=== PATIENT | female | born 1975 | race Caucasian/White ===

== ENCOUNTER → 2020-08-25 10:56 | Outpatient (CLI) | payer OTHER, SELFPAY ==
--- NOTE | ~2020-08-25 | MM_ITS ---
EXAMINATION: MM screening [facility] BI w riddhi HISTORY: Screening mammogram TECHNIQUE: Craniocaudal and mediolateral oblique 3-D tomosynthesis images were obtained and synthetic 2-D images were generated. CAD analysis was submitted and interpreted. COMPARISON: 04/21/2014, 04/20/2013 BREAST PARENCHYMAL COMPOSITION: The breasts are extremely dense, which lowers the sensitivity of mamm ography. FINDINGS: There is no evidence of suspicious mass, calcification, or architectural distortion to sugg est malignancy in either breast. There has been no suspicious interval change. IMPRESSION: 1. No mammographic evidence of malignancy. 2. Recommend routine screening mammography in one year. BI-RADS Category 1: Negative Reviewed, dictated and finalized at location A.
--- NOTE | ~2020-08-25 | DEXA_ITS ---
Bone Density Report Name: Cheyanne Williamson Age: 45 Sex: Female Ethnicity: White Date of : 1975 Indication: prior fracture; Referring Provider: LARRY ACUÑA Study: Bone densitometry was performed. Exam Date: August 25, 2020 Accession number: [id number] Bone Density: Region BMD T-score Z-score Classification AP Spine (L1-L4) 0.791 -2.3 -1.9 Osteopenia Femoral Neck (Left) 0.573 -2.5 -2.1 Osteoporosis Total Hip (Left) 0.670 -2.2 -2.0 Osteopenia Femoral Neck (Right) 0.581 -2.4 -2.0 Osteopenia Total Hip (Right) 0.652 -2.4 -2.1 Osteopenia Total Hip Mean 0.661 -2.3 -2.1 Osteopenia World Health Organization criteria for BMD impression classify patients as: Normal (T-score at or above -1.0), Osteopenia (T-score between -1.0 and -2.5), or Osteoporosis (T-score at or below -2.5). 10-year Fracture Risk: FRAX not reported because: Premenopausal woman Some T-score for Spine Total or Hip Total or Femoral Neck at or below -2.5 Prior hip or vertebral fracture< Clinical Information Provided by Patient: Have had a previous hip or vertebral fracture Has had a low trauma fracture Is being treated for osteoporosis Has used the following medications: HRT (i.e. estrogen/hormone therapy), Vitamin D Patient maximum height was 60.25 No regular weight bearing exercise Drinks caffeinated beverages Onset of menses at age 16 Premenopausal Number of children 0 Impression: The patient's bone mass is below expected range for age, gender and ethnicity based on the Left Femoral Neck Z-score. The patient has risk factors, including: previous fracture. Discussion: It is important to ask patients whether they are taking their medications and to encourage continued and appropriate compliance with their osteoporosis therapies to reduce fracture risk. It is also important to review their risk factors and encourage appropriate calcium and vitamin D intakes, exercise, fall prevention and other lifestyle measures. Follow-Up: Consider a repeat BMD and Vertebral Fracture Assessment (VFA) exam in 2 years or sooner if medically necessary, to reassess this patient's status. Reported by: [facility] on 08/25/2020 11:12:00 AM. Reviewed, dictated and finalized at location Asha AYALA
== END ==
PROVIDERS: Visit Provider Family Medicine
DX: Z12.31 Encounter for screening mammogram for malignant neoplasm of breast (principal); Z78.0 Asymptomatic menopausal state; M81.0 Age-related osteoporosis without current pathological fracture; M85.88 Other specified disorders of bone density and structure, other site; M85.852 Other specified disorders of bone density and structure, left thigh; M85.851 Other specified disorders of bone density and structure, right thigh
CPT/HCPCS: 77063; 77067; 77080

== ENCOUNTER 2021-12-18 14:23 | Outpatient (CLI) | payer OTHER, SELFPAY ==
--- NOTE | 2021-12-18 14:56 | ECHO_ITS ---
Patient Info Name: Cheyanne Williamson Age: 46 years : 1975 Gender: Female Ht: 60 in Wt: 130 lbs BSA: 1.59 m2 HR: 101 bpm BP: 115 / 83 mmHg Heart Rhythm: Sinus Rhythm, Tachycardia Exam Date: 12/18/2021 3:14 PM Exam Location: [facility] Patient Status: Outpatient Admit Date: 12/18/2021 Staff Ordering Physician: Morelia Lomax MD Borderer: Milagros Randle RDCS Attending Provider: Jonny Lomax MD Referring Physician: Dami ESPINO; Exam Type: CA echo doppler color flow Study Info Indications I51.9 - Heart disease, unspecified Complete two-dimensional, color flow and Doppler transthoracic echocardiogram is performed. Summary 1. Complete two-dimensional, color flow and Doppler transthoracic echocardiogram is performed. 2. Normal left ventricular size and thickness with good systolic function of all segments. The ejection fraction 60/2%. No segmental wall motion abnormalities. Normal diastolic function. 3. No significant valve disease. 4. Normal sinus rhythm/sinus tachycardia. Left Ventricle Left ventricular chamber dimension is normal. Left ventricular systolic function is normal, estimated at 60-65%. There is no increased left ventricular wall thickness. Left ventricular septal wall motion is normal. The left ventricular diastolic function is normal. Right Ventricle Right ventricular chamber dimension is normal. Right ventricular systolic function is normal. Left Atria Left atrial chamber dimension is normal. Right Atria Right atrial chamber dimension is normal. Aortic Valve The aortic valve is trileaflet. There is no aortic valve sclerosis. There is no aortic valve stenosis. There is no aortic valve regurgitation. Pulmonic Valve The pulmonic valve is normal. There is no pulmonic valve stenosis. There is no pulmonic regurgitation. Mitral Valve The mitral valve has normal leaflets. There is no mitral valve stenosis. There is no mitral valve regurgitation. Tricuspid Valve The tricuspid valve leaflets are normal. There is no significant tricuspid valve stenosis. There is no tricuspid valve regurgitation. No pulmonary hypertension, estimated pulmonary arterial systolic pressure is Empty. Pericardium/Pleural The pericardium appears normal. There is no pericardial effusion. Inferior Vena Cava Normal inferior vena cava with >50% collapse upon inspiration consistent with Empty right atrial pressure, Empty. Aorta The aortic root size at the sinus of Valsalva is normal. The prox ascending aorta size is normal. Left Ventricular Outflow Tract Name Value Normal LVOT 2D LVOT Diameter 1.6 cm LVOT Doppler LVOT Peak Gradient 4 mmHg LVOT Mean Gradient 3 mmHg LVOT VTI 17 cm LVOT VTI/AV VTI Ratio 1.0 LVOT Stroke Volume 35 ml LVOT CO 3.1 l/min LVOT CI 2.0 l/min/m2 Mitral Valve
== END 2021-12-18 14:24 | disposition home or self-care (01) ==
LOC: ANHCARD 14:24
PROVIDERS: PCP Family Medicine; Visit Provider Family Medicine
DX: Q96.9 Turner's syndrome, unspecified (principal)
CPT/HCPCS: 93306

== ENCOUNTER 2023-08-02 13:15 | Emergency (ER) | payer OTHER, SELFPAY ==
--- NOTE | ~2023-08-02 | XR_ITS ---
EXAMINATION: XR ankle LT min 3V DATE: 08/02/2023 13:35 INDICATION: Left ankle injury. TECHNIQUE: 4 views of left ankle were obtained. COMPARISON: None. FINDINGS: Bone alignment is normal. No fracture. There is mild osteoarthritis of talonavicular joint. There is ankle soft tissue swelling. IMPRESSION: 1. Mild osteoarthritis of talonavicular joint. Reviewed, dictated and finalized at location A. 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
[2023-08-02 13:25] VITALS: BP 144/90; PULSE 114; RESP 16; TEMP 37.5; O2SAT 97
--- NOTE | 2023-08-02 13:28 | ED.GENADULT ---
HPI - General Adult General Chief complaint: Extremity Injury, Lower Stated complaint: Left Ankle Pain Source: patient, RN notes reviewed and old records reviewed Mode of arrival: ambulatory Limitations: no limitations History of Present Illness HPI narrative: 47-year-old female presents to [facility] with complaint of left ankle pain this started 1 week ago after an inversion injury. Patient states was walking on with chills and twisted ankle. Patient denies any other injury. patient states pain is not improving. Patient noted to have bruising on toes but denies pain in toes. Related Data Allergies Allergy/AdvReac Type Severity Reaction Status Date / Time No Known Allergies Allergy Mild Verified 08/02/23 13:23 Review of Systems Constitutional: Constitutional: Reports no additional constitutional complaints, Denies body ache(s), Denies chills, Denies fatigue, Denies fever(s) and Denies headache(s) Eyes: Eyes: Reports no additional eye complaints and Denies blurry vision ENT: Reports system reviewed and no additional complaints, except as documented, Denies vertigo, Denies dizziness, Denies ear discharge, Denies otalgia, Denies facial pain, Denies headache(s), Denies nasal congestion, Denies nasal discharge, Denies sinus pain, Denies sinus pressure and Denies sore throat Cardiovascular: Cardiovascular: Reports no additional cardiovascular complaints, Denies chest pain, Denies chest pain at rest, Denies rapid heart rate and Denies dyspnea Respiratory: Respiratory: Reports no additional respiratory complaints, Denies chest congestion, Denies cough, Denies pain on inspiration, Denies pain with cough and Denies dyspnea Gastrointestinal: Gastrointestinal: Denies abdominal pain, Denies diarrhea, Denies nausea and Denies vomiting Musculoskeletal: Musculoskeletal: Reports as per HPI Comments: right ankle pain Integumentary/Breasts: Skin/Breast: Denies rash Neurologic: Reports system reviewed and no additional complaints, except as documented, Denies vertigo, Denies dizziness and Denies headache(s) Endocrine: Endocrine: Denies fatigue PMF Past Medical History Medical History History of basal cell cancer (02/27/19) Melanoma in situ of lower leg Neoplasm of uncertain behavior of skin Surgical History Surgical History History of back surgery Social History Social History Smoking status: Never smoker Alcohol intake: never Substance use: never Substance use type: does not use Lack of Transportation: No Lack of Food: Never True Current Housing: I Have Housing Concerned About Future Housing: No Difficulty Paying Gas/Electric Bills: No Difficulty Paying for Meds: No Currently Unemployed: No Education: Bachelor's Degree Difficulty w/ Childcare or Family Care: No Comments At the time of my signature, I reviewed and agree with the nursing past medical, surgical, social, and family history. There is no relevant family history pertinent to the patient complaint. Exam Const: General: cooperative, healthy appearing, no acute distress and well nourished Nutritional Appearance: well nourished Orientation/consciousness: patient oriented x3 Limitations: no limitations HENMT: Head: normal to inspection and normocephalic Ears: external ears normal Face/Nose/Sinus: normal facial exam Face and sinus: normal facial exam Mouth: Yes moist mucous membranes Eyes: General: appearance normal, both eyes and all related structures Sclera: sclerae normal Pupils: Equal, round and reactive pupils present Resp: Effort & Inspection: normal respiratory effort, able to speak in complete sentences, no audible wheezes, no cough, no respiratory distress and no retractions Skin: General skin exam: normal color and no rashes or lesions noted Neur
== END 2023-08-02 13:50 | disposition home or self-care (01) ==
PROVIDERS: Emergency Provider Registered Nurse; PCP Family Medicine
DX: S93.402A Sprain of unspecified ligament of left ankle, initial encounter (principal); S96.912A Strain of unspecified muscle and tendon at ankle and foot level, left foot, initial encounter; Z85.828 Personal history of other malignant neoplasm of skin; X50.0XXA Overexertion from strenuous movement or load, initial encounter
CPT/HCPCS: 73610; 99213; G0463

== ENCOUNTER 2024-04-14 10:54 | Outpatient (CLI) | payer OTHER, SELFPAY ==
--- NOTE | ~2024-04-14 | MM_ITS ---
EXAMINATION: MM screening [facility] BI w riddhi HISTORY: Screening mammogram TECHNIQUE: Craniocaudal and mediolateral oblique 3-D tomosynthesis images were obtained and synthetic 2-D images were generated. CAD analysis was submitted and interpreted. COMPARISON: 08/25/2020 BREAST PARENCHYMAL COMPOSITION:Dense: The breasts are extremely dense, which lowers the sensitivity o f mammography. FINDINGS: No suspicious mass, calcification, or architectural distortion are identified in either horacio ast to suggest malignancy. There has been no suspicious interval change. IMPRESSION: No mammographic evidence of malignancy. Recommend routine screening mammography in one year. BI-RADS Category 1: Negative Reviewed, dictated and finalized at location . R SECURITY
== END 2024-04-14 10:55 | disposition home or self-care (01) ==
LOC: MICIMG 10:55
PROVIDERS: PCP Family Medicine; Visit Provider Family Medicine
DX: Z12.31 Encounter for screening mammogram for malignant neoplasm of breast (principal)
CPT/HCPCS: 77063; 77067

== ENCOUNTER 2025-02-21 13:10 | Outpatient (CLI) | payer OTHER, SELFPAY ==
--- NOTE | ~2025-02-21 | DEXA_ITS ---
Bone Density Report Name: EDISON EUBANKS Age: 49 Sex: Female Ethnicity: White Date of : 1975 Indication: postmenopausal; prior fracture; Referring Provider: LARRY ACUÑA Study: Bone densitometry was performed. Exam Date: February 21, 2025 Accession number: [id number] Bone Density: Region BMD T-score Z-score Classification AP Spine(L1-L4) 0.844 -1.8 -1.2 Osteopenia Femoral Neck (Left) 0.603 -2.2 -1.6 Osteopenia Total Hip (Left) 0.698 -2.0 -1.6 Osteopenia Femoral Neck (Right) 0.621 -2.1 -1.4 Osteopenia Total Hip (Right) 0.687 -2.1 -1.7 Osteopenia Total Hip Mean 0.692 -2.1 -1.7 Osteopenia World Health Organization criteria for BMD impression classify patients as: Normal (T-score at or above -1.0), Osteopenia (T-score between -1.0 and -2.5), or Osteoporosis (T-score at or below -2.5). 10-year Fracture Risk: FRAX not reported because: Prior hip or vertebral fracture Previous Exams: Region Exam Age BMD T-score BMD Change BMD Change Date g/cm2 vs Baseline vs Previous AP Spine (L1-L4) 02/21/2025 49 0.844 -1.8 0.067 (8.6%)* 0.068 (8.8%)* 05/22/2016 40 0.776 -0.001 (-0.1%) -0.001 (-0.1%) 04/21/2014 38 0.777 Total Hip(Left) 02/21/2025 49 0.698 -2.0 0.006 (0.8%) 0.016 (2.4%) 05/22/2016 40 0.681 -0.011 (-1.6%) -0.011 (-1.6%) 04/21/2014 38 0.692 Total Hip(Right) 02/21/2025 49 0.687 -2.1 0.033 (5.0%)* 0.031 (4.8%)* 05/22/2016 40 0.656 0.002 (0.3%) 0.002 (0.3%) 04/21/2014 38 0.654 *Denotes significance at 95% confidence level, LSC for AP Spine = 0.022 g/cm2, LSC for Total Hip = 0.027 g/cm2 Clinical Information Provided by Patient: Have had a previous hip or vertebral fracture Has had a low trauma fracture Has used the following medications: Vitamin D Patient maximum height was 60.25 No regular weight bearing exercise Drinks caffeinated beverages Onset of menses at age 14 Number of children 0 Impression: The patient has low bone mass, based on the Left Femoral Neck T-score. The patient has risk factors, including: previous fracture. No significant bone loss was observed. Discussion: INCREASED RISK OF FRACTURE DUE TO HISTORY OF FRACTURE. The patient's previous fracture puts the patient at high risk of a future fracture. In untreated patients, the risk of osteoporotic fracture increases approximately two-fold for each 1.0 SD decrease in T-score. Low bone density is not the only risk factor for fracture; also consider factors such as patient's age, frailty or poor health, risk of falling, risk of injury, previous osteoporotic fracture, family history of osteoporosis, cigarette smoking, low body weight, etc. Not everyone with a low trauma fracture has osteoporosis; osteomalacia and other metabolic bone disorders should also be considered. Patients who have osteoporosis should be evaluated for specific diseases and conditions (secondary causes) that may cause or contribute to bone loss and fracture risk. National Osteoporosis Foundation (NOF) recommends pharmacologic intervention for patients with a prior hip or vertebral fracture regardless of BMD T-score. The patient should follow a healthful lifestyle (good nutrition with adequate calcium and vitamin D, and appropriate weight-bearing exercise). Follow-Up: Consider a repeat BMD and Vertebral Fracture Assessment (VFA) exam in 2 years or sooner if medically necessary, to reassess this patient's status. Reported by: YVETTE on 02/21/2025 1:50:00 PM. Reviewed, dictated and finalized at location A.
--- OUTSIDE RECORDS SUMMARY | 2025-02-21 13:18 | XMS_ITS | Clinical Summary ---
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 Gender Identity Not on file Sexual Orientation Not on file Plan of Treatment Health Maintenance Due Date Last Done Comments Cervical Cancer Screening Pa p Smear (Age 30 to 64) Every 3 Years 1975 Colorectal Cancer Screening Colonoscopy (10 Years) 1976 Annual Physical 08/18/1979 Hepatitis C 1994 DTaP, Tdap and Td Vaccines ( 1 - Tdap) 08/18/1995 Hepatitis B Vaccines (1 of 3 - 19+ 3-dose series) 08/18/1995 Cervical Cancer Screening Pa p with HPV Testing (Age 30 to 64) Every 5 Years 2006 Cervical Cancer Screening with HPV 2006 Mammogram Screening 2016 COVID-19 Vaccine (2023-2 5 season) 2025 Meningococcal B Vaccine Aged Out No l onger eligible based on patient's age to complete this topic Meningococcal Vaccine Aged Out No dung valentino eligible based on patient's age to complete this topic Pneumococcal Vaccine: Pediat rics (0 to 5 Years) and At-Risk Patients (6 to 49 Years) Aged Out No longer eligible b ased on patient's age to complete this topic RSV Immunizations Under 20 Months Aged Out No longer eligible based on patient's age to complete this topic
--- OUTSIDE RECORDS SUMMARY | 2025-02-21 13:18 | XMS_ITS | Clinical Summary ---
Author Organization [facility] [employer] Address [address] [place] [address] Care Team Providers Care Creping Machine Operator Helper Name Role Phone Unavailable Primary Care Provider Unavailabl e Source Comments [facility] [employer],non-owned Affiliates and Associated Physician Practices is amultiple site organization consisting of ambulatory clinics and hospital sitesin [place], [place] and [place]. This disclosure is being madepursuant to the Care Everywhere program and may not contain all information available regarding this patient. Last updated 18.[facility] [employer] Social History Tobacco Use Types Packs/Day Years Used Date Smoking Tobacco: Never Assessed Comments Unknown Sex and Gender Information Value Date Recorded Sex Assigned at Not on file Legal Sex Female 3:06 PM CDT Gender Identity Not on file Sexual Orientation Not on file Plan of Treatment Health Maintenance Due Date Last Done Comments COLOGUARD (AGES 45-75) - COL ON CA SCREENING 1975 COLON MONITORING 1975 COLONOSCOPY - COLON CA SCREENING 1976 CT COLONOGRAPHY - COLON CA SCREENING 1975 Colorectal Cancer Screening 1975 FIT - COLON CA SCREENING 1976 FLEX SIG - COLON CA SCREENING 1976 LIPID TESTING 1975 MAMMOGRAM 1975 HIV SCREENING 08/18/1991 HEPATITIS C SCREENING 08/13/1994 DTAP/TDAP/TD VACCINES (1 - Tdap) 08/18/1995 HEPATITIS B VACCINE (1 of 3 - 19+ 3-dose series) 08/18/1995 PAP SMEAR 1997 DEPRESSION SCREENING 06/01/2024 COVID-19 VACCINE ( - 2023-2 5 season) 2025 INFLUENZA VACCINE (#1) 2025 ZOSTER VACCINE (1 of 2) 2026 HIB VACCINE Aged Out No longer eligi ble based on patient's age to complete this topic HPV VACCINE Aged Out No longer eligi ble based on patient's age to complete this topic MENINGOCOCCAL (Group B) VACC INE SHARED DECISION-MAKING Aged Out No longer eligibl e based on patient's age to complete this topic MENINGOCOCCAL GROUPS A/C/Y/W VACCINE Aged Out No longer eligible b ased on patient's age to complete this topic PNEUMOCOCCAL VACCINE Aged Out No long er eligible based on patient's age to complete this [place] [address] [employer]
--- OUTSIDE RECORDS SUMMARY | 2025-02-21 13:18 | XMS_ITS | Clinical Summary ---
Author Organization [facility] [address] [place] [address] Address [address] [place] [address] Care Team Providers Care Community Manager Name Role Phone Jonny Lomax MD Primary Care Provider [phone] Allergies No known active allergies Medications HYDROcodone-jessica taminophen (NORCO) 5-325 mg tabletIndicatio ns:Status post lumbar spinal fusion Take 1 Tablet by mouth every 4 hours as needed for Moderate Pain. Max Daily Amount: 6 Tablets 40 Tablet 07/07/2019 12:54 PM FULL TIME PARAMEDIC 07/07/2019 Active cyclobenzaprine (FLEXERIL) 10 mg tablet Take 1 Tablet (10 mg) by mouth 3 times daily as needed for Spasm. 60 Tablet 1 07/07/2019 12:54 PM FULL TIME PARAMEDIC 07/07/2019 Active Active Problems Problem Noted Date Diagnosed Date Status post lumbar spinal fusion 07/07/2019 Acute blood loss anemia 09/27/2018 Lumbar burst fracture 09/25/2018 Fall 09/25/2018 Closed compression fracture of L1 lumbar vertebr a Social History Tobacco Use Types Packs/Day Years Used Date Smoking Tobacco: Never Smokeless Tobacco: Never Tobacco Cessation:Counseling Given: No Alcohol Use Standard Drinks/Week Comments Never 0 (1 standard drink = 0.6 oz pur e alcohol) Comments No Sex and Gender Information Value Date Recorded Sex Assigned at Not on file Legal Sex Female 11:43 AM CDT Gender Identity Not on file Sexual Orientation Not on file Last Filed Vital Signs Vital Sign Reading Time Taken Comments Blood Pressure 114/81 07/07/2019 11:28 AM FULL TIME PARAMEDIC Pulse 109 07/07/2019 11:28 AM FULL TIME PARAMEDIC Temperature 36.4 C (97.5 F) 07/07/2019 11:28 AM FULL TIME PARAMEDIC Respiratory Rate 16 07/07/2019 11:28 AM FULL TIME PARAMEDIC Oxygen Saturation 97% 07/07/2019 11:28 AM FULL TIME PARAMEDIC Inhaled Oxygen Concentration - - Weight 60.4 kg (133 lb 3.2 oz) 07/07/2019 5:39 A M FULL TIME PARAMEDIC Height 152.4 cm (5') 07/07/2019 5:39 AM FULL TIME PARAMEDIC Body Mass Index 26.01 07/07/2019 5:39 AM FULL TIME PARAMEDIC Plan of Treatment Health Maintenance Due Date Last Done Comments DTAP/TDAP/TD VACCINES (1 - Tdap) 08/18/1995 HEPATITIS B VACCINES (1 of 3 - 19+ 3-dose series) 07/30 HPV/Cotest (21-29) 1997 CERVICAL CANCER SCREENING 2006 HPV/Cotest (30-65) 2006 PAP SMEAR 2006 BREAST CANCER SCREENING 2016 COLORECTAL SCREENING 2021 Colorectal Cancer Screening 2021 FIT-DNA Q 3 years 2021 FIT/FOBT Q 1 year 2021 Flex Sig/CT Colonography Q 5 years 2021 INFLUENZA VACCINE (#1) 2024 Medical Devices Implanted Type Area Records Management Manager Device Identifier Shelf Expiration Date Model / Serial / Lot Hemostatic Surgiflo 8ml W/Thrombin 2994 - [id number] Implanted:Qty: 1 on 07/07/2019 by Julio Langford DO at [facility] Hemostatic N/A: Spine Lumbar [employer] 03/31/2020 2994 / / [id number] Explanted Type Area Records Management Manager Device Identifier Shelf Expiration Date Model / Serial / Lot Setscrew Viper 1866-15-000 - [id number] Implanted:Qty : 10 on 09/26/2018 by Julio Langford DO at [facility] Explanted:Qty : 10 on 07/07/2019 by Julio Langford DO at [facility] Screw N/A: Spine Lumbar [employer] / / STERILIZED 09/25/09 LOAD 17 Viper Prime Screws 5x40 Implanted:Qty : 4 on 09/26/2018 by Julio Langford DO at [facility] Explanted:Qty : 4 on 07/07/2019 at [facility] N/A: Spine Lumbar [id number] / / STERILIZED 09/25/18 LOAD 17 Viper Prime Scews 5x35 Implanted:Qty : 2 on 09/26/2018 by Julio Langford, DO at [facility] Explanted:Qty : 2 on 07/07/2019 at [facility] N/A: Spine Lumbar [id number] / / STERILIZED 04/09/2018 LOAD 111 Viper Prime Screws 5 X 40 Implanted:Qty : 4 on 09/26/2018 by Julio Langford, DO at [facility] Explanted:Qty : 4 on 07/07/2019 by Julio Langford, DO at [facility] N/A: Spine Lumbar [id number] / / STERILIZED 04/21/2018 LOAD 24 Viper2 Straight Alexys 300mm,Cocr Implanted:Qty : 2 on 09/26/2018 by Julio Langford, DO at [facility] Explanted:Qty : 2 on 07/07/2019 by Julio Langford, DO at [facility] N/A: Spine Lumbar [id number] / / Description:All [employer] spinal hardware was processed on requisition,[id number]. Insurance [employer] * Guarantor: [id number] Account Type Relation to Patient Date of Phone Billing Address Workers Comp Employer * Guarantor: [employer] [facility] [employer] ([employer]) Account Type Relation to Patient Date of Phone Billing Address Corporate Other [address] [address] Advance Directives For more information, please contact: [phone] * Full Code (Latest Code Status on File) Date Activated Date Inactivated Comments 07/07/2019 6:19 AM 07/07/2019 5:13 PM * Full Code Date Activated Date Inactivated Comments 07/07/2019 5:45 AM 07/07/2019 6:19 AM * Full Code Date Activated Date Inactivated Comments 09/26/2018 7:35 AM 09/27/2018 9:09 PM * Full Code Date Activated Date Inactivated Comments 09/25/2018 4:59 PM 09/26/2018 7:35 AM Care Teams Community Manager Relationship Specialty Start Date End Date Jonny Lomax MD PCP - General Family Practice 09/23/18
--- OUTSIDE RECORDS SUMMARY | 2025-02-21 13:18 | XMS_ITS | Encounter Summary ---
Author Organization [facility], [facility] Address [address] [place] [address] Care Team Providers Care Geological Drafter Name Role Phone Unavailable Primary Care Provider Unavailabl e Encounter Details Date Type Department Care Team (Late st Contact Info) Description 12/15/2023 Lab Requisition [facility] - DermPath Lab [address] [place] [address] Cheyanne Garnica PA-C [address] [place] [phone] Neoplasm of uncertain behavior of skin Social History Tobacco Use Types Packs/Day Years Used Date Smoking Tobacco: Never Assessed Comments Unknown Sex and Gender Information Value Date Recorded Sex Assigned at Not on file Legal Sex Female 3:06 PM CDT Gender Identity Not on file Sexual Orientation Not on file documented as of this encounter Plan of Treatment Not on file documented as of this encounter Procedures Procedure Name Priority Date/Time Associated Diagnosis Comments DERMATOPATHOLOGY Routine 12/15/2023 12:0 0 AM CDT Neoplasm of uncertain behavior of skin documented in this encounter Results * DERMATOPATHOLOGY (12/15/2023 12:00 AM CDT) Case Report Dermatopathology Report Case: [id number] Authorizing Provider: Cheyanne Garnica, Collected: 12/15/2023 12:00 AM LILIANA Ordering Location: [facility] - Received: 12/17/2023 01:49 PM DermPath Lab Pathologist: Vida Black MD Specimens: A) - Skin, left proximal pretibial region B) - Skin, left lateral back 4:32 PM CDT DERMATOPATHOLOGY LABORATORY Final Diagnosis Specimen A. 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 SKIN, left lateral back: LENTIGINOUS MELANOCYTIC NEVUS, COMPOUND TYPE (D22.5) 4:32 PM T DERMATOPATHOLOGY LABORATORY at 1632 CDT Clinical History A-B: atypical nevus 4:32 PM T DERMATOPATHOLOGY LABORATORY Gross Description Specimen A: Received is one formalin filled container labeled with the patient's name and designated left proximal pretibial region. The specimen consists of a shave biopsy measuring 5x5x1 mm. Jar 0. Specimen B: Received is one formalin filled container labeled with the patient's name and designated left lateral back. The specimen consists of a shave biopsy measuring 8x8x1 mm. Jar 0. 4:32 PM CDT DERMATOPATHOLOGY LABORATORY Microscopic Description Specimen A. SKIN, left proximal pretibial region: This is a compound nevus. There is melanin pigment in the stratum corneum. There is a lentiginous proliferation of melanocytes between nevus nests of cells along the dermal epidermal junction. There is underlying fibroplasia of the papillary dermis. The intradermal component is bland in appearance and matures with depth. (Compound Pal's Nevus) Specimen B. SKIN, left lateral back: This is a compound nevus. There is a lentiginous proliferation of melanocytes between nevus nests of cells along the dermal-epidermal junction. There is underlying lamellar fibroplasia of the papillary dermis. The intradermal component is bland in appearance and matures with depth. (Compound Pal's Nevus) 4 4:32 PM CDT DERMATOPATHOLOGY LABORATORY Disclaimer An external and internal positive and negative controls are appropriate for the histochemical, immunohistochemical and immunofluorescence stain(s) in this case (if any), except where stated explicitly. The performance characteristics of the stain(s) cited in this report were developed and its performance characteristic determined by the Dermatopathology Laboratory at [facility], directed by Dr. Katelynn Black. These tests need not be, and therefore are not, approved by the [place] Food and Drug Administration. The tests are used for clinical purposes. Billing Codes Specimen Charges Stain Charges 57715 40926 1 4 4:32 PM CDT DERMATOPATHOLOGY LABORATORY Embedded Images 4 4:32 PM CDT DERMATOPATHOLOGY LABORATORY Pathology/Cytology TISSUE SPECIMEN FROM SKIN / Unknown 12/15/2023 12/17/2023 1:49 PM CDT Miscellaneous samples (specimen) TISSUE SPECIMEN FROM SKIN / Unknown 12/15/2023 12/17/2023 1:49 PM CDT Cheyanne Garnica PA-C LAB - PATHOLOGY/CYTO LOGY ORDERABLES Final Result DERMATOPATHOLOGY LABORATORY [facility] - Department of Dermatology [facility] [address] [place] [address], [address] [phone] documented in this encounter Visit Diagnoses Diagnosis Neoplasm of uncertain behavior of skin documented in this encounter
== END 2025-02-21 13:11 | disposition home or self-care (01) ==
LOC: ANHFOHIMG 13:11
PROVIDERS: PCP Family Medicine; Visit Provider Family Medicine
DX: M81.0 Age-related osteoporosis without current pathological fracture (principal); M85.88 Other specified disorders of bone density and structure, other site; M85.852 Other specified disorders of bone density and structure, left thigh; M85.851 Other specified disorders of bone density and structure, right thigh
CPT/HCPCS: 77080